=== PATIENT | male | born 1950 | race Caucasian/White ===

== ENCOUNTER 2022-06-14 12:24 | Emergency (ER) | payer MEDICARE ==
[2022-06-14 12:36] VITALS: TEMP 97.8
--- NOTE | 2022-06-14 13:25 | ED ---
General Adult HPI - General Chief complaint: Eye Problems Stated complaint: post op - vision problems Time Seen by Provider: 06/14/22 12:50 Source: patient, family, RN notes reviewed Mode of arrival: ambulatory Limitations: no limitations - History of Present Illness Initial comments: Patient is a pleasant 71-year-old male presenting to the emergency department with blurry vision. Patient is postop 3 weeks. 3 Vessel CABG. Patient states over the past week he has been having some blurry vision. Patient states episodes occur almost daily, only first thing in the morning. Patient states episodes are lasting somewhere around half an hour. Patient states no loss of vision just generalized blurry vision. Patient does not have other associated s ymptoms. Patient has lost 20 pounds since surgery. No chest pain or dyspnea. No weakness or headache or confusion. Surgery was done at a different facility. - Related Data Home Medications Medication Instructions Recorded Confirmed Amiodarone [Cordarone] 200 mg PO BID 06/14/22 06/14/22 Aspirin EC [Ecotrin Low Dose] 81 mg PO DAILY 06/14/22 06/14/22 Clopidogrel [Plavix] 75 mg PO DAILY 06/14/22 06/14/22 Empagliflozin [Jardiance] 10 mg PO DAILY 06/14/22 06/14/22 Insulin Glargine,Hum.rec.anlog 32 units SQ DAILY 06/14/22 06/14/22 [Lantus Solostar Pen] Metoprolol Tartrate [Lopressor] 50 mg PO Q12H 06/14/22 06/14/22 Nitroglycerin Sl Tabs [Nitrostat] 0.4 mg SUBLINGUAL Q5M PRN 06/14/22 06/14/22 Rosuvastatin Calcium [Crestor] 40 mg PO HS 06/14/22 06/14/22 Sennosides/Docusate Sodium [Senna 1 cap PO BID 06/14/22 06/14/22 Plus 8.6-50 mg Softgel] hydrALAZINE HCL [Apresoline] 25 mg PO Q12H 06/14/22 06/14/22 Allergies Allergy/AdvReac Type Severity Reaction Status Date / Time latex Allergy Unknown Verified 06/14/22 12:36 lovastatin [From Advicor] Allergy Unknown Verified 06/14/22 12:38 niacin [From Advicor] Allergy Unknown Verified 06/14/22 12:38 Review of Systems ROS Statement: Those systems with pertinent positive or pertinent negative responses have been documented in the HPI. ROS Other: All systems not noted in ROS Statement are negative. Constitutional: Denies: fever Eyes: Reports: as per HPI. Denies: eye pain ENT: Denies: ear pain Respiratory: Denies: cough Cardiovascular: Denies: chest pain Endocrine: Denies: fatigue Gastrointestinal: Denies: abdominal pain Genitourinary: Denies: dysuria Musculoskeletal: Denies: back pain Skin: Denies: rash Neurological: Denies: weakness Past Medical History Past Medical History: Diabetes Mellitus, Hypertension Additional Past Medical History / Comment(s): hypercholestremia, CAD, CKD, Cardiomyopathy History of Any Multi-Drug Resistant Organisms: None Reported Past Surgical History: Heart Catheterization With Stent Additional Past Surgical History / Comment(s): ortho Past Psychological History: No Psychological Hx Reported Smoking Status: Never smoker Past Alcohol Use History: None Reported Past Drug Use History: None Reported General Exam Limitations: no limitations General appearance: alert, in no apparent distress Head exam: Present: atraumatic, normocephalic Eye exam: Present: normal appearance, PERRL, EOMI, other (Funduscopic exam within normal limits bilaterally). Absent: conjunctival injection, periorbital swelling, periorbital tenderness Neck exam: Present: normal inspection Respiratory exam: Present: normal lung sounds bilaterally Cardiovascular Exam: Present: regular rate, normal rhythm GI/Abdominal exam: Present: soft. Absent: tenderness Extremities exam: Present: normal inspection. Absent: pedal edema, calf tenderness Neurological exam: Present: alert, CN II-XII intact. Absent: motor sensory deficit Expanded Neurological exam: Present: protecting the airway Speech: Present: fluid speech Cranial nerves: EOM's Intact: Normal, Facial Sensation: Normal Motor strength exam: RUE: 5, LUE: 5, RLE: 5, LLE: 5 Eye Response: (4) open spontaneously Motor Response: (6) obeys commands Verbal Response: (5) oriented Psychiatric exam: Present: normal affect, normal mood Skin exam: Present: normal color Course Vital Signs 06/14/22 06/14/22 12:31 13:00 Temperature 97.8 F Pulse Rate 74 71 Respiratory 20 19 Rate Blood Pressure 134/62 142/73 O2 Sat by Pulse 97 98 Oximetry EKG Findings - EKG Results: EKG: interpreted by ERMD (Prescribed AV block, [place] 286. The bundle-branch block. Nonspecific ST-T. Left axis.), sinus rhythm Medical Decision Making - Medical Decision Making Patient reevaluated and remained symptom-free. Case was also discussed with Dr. madison, covering hospital call who agrees patient is stable for discharge with close follow-up. Patient and family updated on results and need for follow-up. Patient likely has a component of orthostasis/dehydration. Patient recommended small fluid bolus however refuses a secondary to be symptom-free at this point. Small fluid bolus was specifically recommended secondary to recent surgery, rather than large fluid bolus. Nevertheless patient still refuses. Patient is agreeable to close follow-up. - Lab Data Result diagrams: 06/14/22 13:50 06/14/22 14:18 Lab Results 06/14/22 06/14/22 06/14/22 Range/Units 13:50 13:50 14:18 WBC 4.9 (3.8-10.6) k/uL RBC 3.28 L (4.30-5.90) m/uL Hgb 10.9 L (13.0-17.5) gm/dL Hct 31.6 L (39.0-53.0) % MCV 96.1 (80.0-100.0) fL MCH 33.3 (25.0-35.0) pg MCHC 34.6 (31.0-37.0) g/dL RDW 13.9 (11.5-15.5) % Plt Count 151 (150-450) k/uL MPV 9.1 Neutrophils % 60 % Lymphocytes % 24 % Monocytes % 8 % Eosinophils % 3 % Basophils % 1 % Neutrophils # 2.9 (1.3-7.7) k/uL Lymphocytes # 1.2 (1.0-4.8) k/uL Monocytes # 0.4 (0-1.0) k/uL Eosinophils # 0.1 (0-0.7) k/uL Basophils # 0.0 (0-0.2) k/uL Hypochromasia Slight PT 12.2 H (9.0-12.0) sec INR 1.2 H (<1.2) APTT 23.7 (22.0-30.0) sec Sodium 141 (137-145) mmol/L Potassium 4.0 (3.5-5.1) mmol/L Chloride 109 H (98-107) mmol/L Carbon Dioxide 23 (22-30) mmol/L Anion Gap 9 mmol/L BUN 19 (9-20) mg/dL Creatinine 2.50 H (0.66-1.25) mg/dL Est GFR (CKD-EPI)AfAm 29 (>60 ml/min/1.73 sqM) Est GFR (CKD-EPI)NonAf 25 (>60 ml/min/1.73 sqM) Glucose 117 H (74-99) mg/dL Calcium 9.2 (8.4-10.2) mg/dL Magnesium 2.1 (1.6-2.3) mg/dL Total Bilirubin 1.3 (0.2-1.3) mg/dL AST 25 (17-59) U/L ALT 20 (4-49) U/L Alkaline Phosphatase 107 (38-126) U/L Total Protein 6.5 (6.3-8.2) g/dL Albumin 3.8 (3.5-5.0) g/dL - Radiology Data Radiology results: report reviewed (CT brain shows atrophy. No acute process) Interpreted by me: His x-ray shows postoperative changes. No acute process. Disposition Clinical Impression: Blurry vision Disposition: HOME SELF-CARE Condition: Stable Instructions (If sedation given, give patient instructions): Blurred Vision (ED) Additional Instructions: Please follow-up with your primary care physician, [facility] thoracic surgeon, and ophthalmology in the next day or 2 for recheck. Return for loss of vision, increased blurry vision, feeling like urinary pass out, chest pain or shortness of breath, weakness or confusion, worsening symptoms or any other concerns. Is patient prescribed a controlled substance at d/c from ED?: No Referrals: Deshaun Schwartz MD [Primary Care Provider] - 1-2 days Linus Jones MD [STAFF PHYSICIAN] - 1-2 days Time of Disposition: 16:13
[2022-06-14 14:05] LABS: Basophils % (A) 1 %; Eosinophils # (A) 0.1 k/uL (0-0.7); Eosinophils % (A) 3 %; HCT 31.6 % (39.0-53.0); HGB 10.9 gm/dL (13.0-17.5); Hypochromasia Slight; Lymphocytes # (A) 1.2 k/uL (1.0-4.8); Lymphocytes % (A) 24 %; MCH 33.3 pg (25.0-35.0); MCHC 34.6 g/dL (31.0-37.0); MCV 96.1 fL (80.0-100.0); Mean Platelet Volume 9.1; Monocytes # (A) 0.4 k/uL (0-1.0); Monocytes % (A) 8 %; Neutrophils # (A) 2.9 k/uL (1.3-7.7); Neutrophils % (A) 60 %; Platelet Count 151 k/uL (150-450); RBC 3.28 m/uL (4.30-5.90); RDW 13.9 % (11.5-15.5); WBC 4.9 k/uL (3.8-10.6)
[2022-06-14 14:18] LABS: INR 1.2 (<1.2)
[2022-06-14 14:19] LABS: Partial Thromboplastin Time 23.7 sec (22.0-30.0); Prothrombin Time 12.2 sec (9.0-12.0)
--- NOTE | 2022-06-14 14:48 | CT ---
EXAMINATION TYPE: CT brain wo con DATE OF EXAM: 06/14/2022 COMPARISON: None HISTORY: VIsual changes, blurred vision CT DLP: 1231.8 mGycm Automated exposure control for dose reduction was used. Images of the brain obtained with no contrast. There is cerebral cortical atrophy. There is no mass effect or midline shift. No sign of intracranial hemorrhage. The calvarium is intact. IMPRESSION: Cerebral atrophy. No acute intracranial abnormality.
--- NOTE | 2022-06-14 14:50 | XR ---
EXAMINATION TYPE: XR chest 2V DATE OF EXAM: 06/14/2022 COMPARISON: NONE HISTORY: Pain TECHNIQUE: 2 view FINDINGS: Heart is normal. Lungs are clear of infiltrate. There is some linear density left lower lob e. There are sternal wires. No heart failure. The bony thorax is intact. IMPRESSION: Mild scarring or subsegmental atelectasis left lung base. Normal heart.
[2022-06-14 15:00] LABS: Albumin 3.8 g/dL (3.5-5.0); Calcium 9.2 mg/dL (8.4-10.2); Magnesium 2.1 mg/dL (1.6-2.3); Total Bilirubin 1.3 mg/dL (0.2-1.3); Total Protein 6.5 g/dL (6.3-8.2)
[2022-06-14 17:07] VITALS: BP 140/77; PULSE 69; RESP 16
== END 2022-06-14 16:50 | disposition home or self-care (01) ==
LOC: EC 12:24
DX: H53.8 Other visual disturbances (principal); E11.9 Type 2 diabetes mellitus without complications; I10 Essential (primary) hypertension; Z91.040 Latex allergy status; Z88.8 Allergy status to other drugs, medicaments and biological substances; Z88.3 Allergy status to other anti-infective agents; Z79.82 Long term (current) use of aspirin; Z79.4 Long term (current) use of insulin; Z79.899 Other long term (current) drug therapy
CPT/HCPCS: 36415; 70450; 71046; 80053; 83735; 85025; 85610; 85730; 93005; 99284